=== PATIENT | female | born 1985 | race American Indian/Alaskan Native ===

== ENCOUNTER 2018-11-02 19:23 | Inpatient (IN) | payer BC, MEDICAID ==
[2018-11-02] MEDS ORDERED: BRETHINE SUB-Q PRN (21:56)
[2018-11-02] MEDS ORDERED: XYLOCAINE 2% INFILTRATI ONE (21:56)
[2018-11-02] MEDS ORDERED: SUBLIMAZE IV PRN (21:56)
--- NOTE | 2018-11-02 23:16 | History and Physical Report ---
History of Present Illness Date of examination: 11/02/18 Date of admission: 11/02/18 19:23 Chief complaint: Here for induction of labor due to obesity and elevated blood pressures. History of present illness: 33 year old female presents to L&D for induction of labor due to obesity and elevated blood pressure. LMP 02/02/18. EDC 11/09/18. Patient has received care at [facility] OB-CLIENT RELATIONS REPRESENTATIVE. records are available. significant for the following: obesity, vitamin D deficiency (supplemented with Vitamin D), anemia (supplemented with iron), hypothyroidism (treated with Levothyroxine), abnormal quad screen (increased risk Down Syndrome, panorama low risk), elevated blood pressures for the last week of . labs are as follows: O+, antibody screen negative, rubella immune, RPR nonreactive, hepatitis B surface antigen negative, HIV negative, hemoglobin electrophoresis AA, GC negative, CT negative, hemoglobin A1C 5.8, varicella immune, HSV 2 negative. Past History Past Medical History: other (obesity, hypothyroidism) Past Surgical History: no surgical history CLIENT RELATIONS REPRESENTATIVE History: denies: abnormal PAP smear, cancer, chlamydia, gonorrhea, hepatitis B, hepatitis C, herpes, HIV, syphilis, trichomonas Family/Genetic History: none Social history: Lives alone, full code. denies: smoking, alcohol abuse, prescription drug abuse, IV drug use - Obstetrical History Expected Date of Delivery: 11/09/18 Actual Gestation: 39 Week(s) 1 Day(s) : 3 Para: 1 Hx # Term Pregnancies: 2 Number of Pregnancies: 0 Spontaneous Abortions: 0 Induced : 0 Number of Living Children: 1 Medications and Allergies Allergies Allergy/AdvReac Type Severity Reaction Status Date / Time No Known Allergies Allergy Verified 11/02/18 22:16 Home Medications Medication Instructions Recorded Confirmed Last Taken Type Levothyroxine 1 PO DAILY 11/03/18 11/02/18 19:30 History Active Meds: Active Medications Ephedrine Sulfate (Ephedrine Sulfate) 10 mg IV Q2M PRN PRN Reason: Hypotension Fentanyl (Sublimaze) 100 mcg IV Q2H PRN PRN Reason: Labor Pain Lactated Ringer's (Lactated Ringers) 1,000 mls @ 125 mls/hr IV DIRECT VARSHA Oxytocin/Sodium Chloride (Pitocin/Ns 20 Unit/1000ml Drip) 20 units in 1,000 mls @ 125 mls/hr IV DIRECT VARSHA Oxytocin/Sodium Chloride (Pitocin/Ns 30 Unit/500ml) 30 units in 500 mls @ 0 mls/hr IV TITR VARSHA; Protocol Terbutaline Sulfate (Brethine) 0.25 mg SUB-Q ONCE PRN PRN Reason: Hyperstimulation/Hypertonicity Review of Systems All systems: negative - Vital Signs Vital signs: Vital Signs Pulse Pulse Ox 94 H 100 11/02/18 19:48 11/02/18 19:48 Temp Pulse Resp BP Pulse Ox 97.4 F L 94 H 18 127/90 98 11/02/18 19:58 11/02/18 21:33 11/02/18 19:58 11/02/18 21:08 11/02/18 21:33 - Physical Exam Abdomen: Positive: normal appearance, soft. Negative: distention, tenderness, guarding, rigidity Genitourinary (Female): Positive: normal external genitalia, normal perenium. Negative: perineal/vulvar lesions (no lesions seen on careful exam with bright light upon admission) Vagina: Positive: normal moisture Uterus: Positive: normal size Anus/Rectum: Positive: normal perianal skin Extremities: Positive: normal. Negative: tenderness, edema - Obstetrical FHR: category 1 Uterine Contraction Monitor Mode: External Cervical Dilatation: 3 Cervical Effacement Percentage: 60 station: -3 Uterine Contraction Pattern: Irregular Uterine Contraction Intensity: Mild Results Result Diagrams: 11/02/18 23:00 11/02/18 23:00 All other labs normal. Assessment and Plan A: at 39 weeks, 1 day gestation. GBS negative. Morbid obesity. Recent mild elevation of BP. P: Admit. Continuous EFM. Labs. Pitocin cervical ripening and induction of labor. Discussed with patient risks and benefits of Pitocin cervical ripening and induction of labor. Patient con sented to Pitocin cervical ripening and induction of labor.
[2018-11-02] MEDS: PITOCin/NS 30 UNIT/500ML 30 UNITS/500 ML BAG IV SCH (23:20)
[2018-11-02] MEDS: LACTATED RINGERS 1,000 ML IV SCH (23:30)
[2018-11-02 23:33] LABS: Hematocrit 34.8 % (30.3-42.9); Hemoglobin 11.3 gm/dl (10.1-14.3); Mean Corpuscular HGB Conc 32 % (30-34); Mean Corpuscular Volume 80 fl (79-97); Platelet Count 253 K/mm3 (140-440); Red Blood Count 4.37 M/mm3 (3.65-5.03); Red Cell Distribution Width 14.7 % (13.2-15.2)
[2018-11-02 23:58] LABS: Alanine Aminotransferase 11 units/L (7-56); Albumin 3.4 g/dL (3.9-5); BUN/Creatinine Ratio 8; Blood Urea Nitrogen 5 mg/dL (7-17); Calcium 8.8 mg/dL (8.4-10.2); Hemolysis Index 4
[2018-11-03 03:28] LABS: Uric Acid 4.1 mg/dL (3.5-7.6)
[2018-11-03] MEDS: LACTATED RINGERS 1,000 ML IV SCH ×2 (04:56→05:59)
[2018-11-03] MEDS ORDERED: NARCAN 2 MG/2 ML IV PRN (05:21)
--- NOTE | 2018-11-03 05:23 | Anesthesia Consultation ---
Anesthesia Consult and Med Hx - Airway Anesthetic Teeth Evaluation: Good ROM Head & Neck: Adequate Mental/Hyoid Distance: Adequate Mallampati Class: Class I Intubation Access Assessment: Good - Pulmonary Exam CTA: Yes - Cardiac Exam Cardiac Exam: RRR - Pre-Operative Health Status ASA Pre-Surgery Classification: ASA2 Proposed Anesthetic Plan: Epidural - Pulmonary Hx Asthma: No COPD: No Hx Pneumonia: No - Cardiovascular System Hx Hypertension: No - Central Nervous System Hx Seizures: No Hx Psychiatric Problems: No - Endocrine Hx Renal Disease: No Hx End Stage Renal Disease: No Hx Hypothyroidism: Yes (controlled by medication) Hx Hyperthyroidism: No - Hematic Hx Anemia: No Hx Sickle Cell Disease: No - Other Systems Hx Alcohol Use: Yes (socially)
--- NOTE | 2018-11-03 05:23 | Anesthesia Day of Surgery ---
Anesthesia Day of Surgery - Day of Surgery Patient Examined: Yes Patient H&P Reviewed: Yes Patient is NPO: Yes Beta Blockers: No Cardiac Clearance: No Pulmonary Clearance: No Easton's Test: N/A
[2018-11-03] MEDS ORDERED: MARCAINE 0.25% INFILTRATI ONE (05:32)
[2018-11-03] MEDS ORDERED: LIDOCAINE 1.5%/EPI 1:200,000 INFILTRATI ONE (05:32)
[2018-11-03] MEDS: fentaNYL-BUPIV 2 MCG/ML-0.125% 200 MCG/100 ML BAG EPIDURAL SCH ×3 (06:50→22:15)
[2018-11-03] MEDS: SYNTHROID PO SCH (08:13)
[2018-11-03] MEDS ORDERED: ZOFRAN IV ONE (14:00)
[2018-11-03] MEDS: PITOCin/NS 30 UNIT/500ML 30 UNITS/500 ML BAG IV SCH ×2 (15:28→22:00)
[2018-11-04] MEDS: LACTATED RINGERS 1,000 ML IV SCH ×3 (02:48→18:36)
[2018-11-04] MEDS: fentaNYL-BUPIV 2 MCG/ML-0.125% 200 MCG/100 ML BAG EPIDURAL SCH ×3 (05:31→23:18)
[2018-11-04] MEDS: SYNTHROID PO SCH (05:58)
--- NOTE | 2018-11-04 11:18 | Progress Note ---
Assessment and Plan A: at 39 weeks, 3 days gestation. IOL for MO. P: Continue Pitocin induction of labor. Anticipate . Subjective - Subjective Date of service: 11/04/18 Principal diagnosis: at 39 weeks, 3 days gestation; IOL for MO Interval history: Doing well. Comfortable. Pt. feels some pressure with contractions. Patient reports: contractions, no loss of fluid, no vaginal bleeding Objective - Vital Signs Vital Signs: Vital Signs - 12hr 11/03/18 11/03/18 11/03/18 23:18 23:21 23:23 Pulse Rate 89 75 86 Blood Pressure 122/64 O2 Sat by Pulse 99 98 Oximetry 11/03/18 11/03/18 11/03/18 23:28 23:33 23:38 Pulse Rate 78 76 72 Blood Pressure O2 Sat by Pulse 100 100 100 Oximetry 11/03/18 11/03/18 11/03/18 23:43 23:48 23:53 Pulse Rate 72 70 74 Blood Pressure O2 Sat by Pulse 100 100 100 Oximetry 11/03/18 11/04/18 11/04/18 23:58 00:03 00:08 Pulse Rate 68 67 69 Blood Pressure O2 Sat by Pulse 100 99 100 Oximetry 11/04/18 11/04/18 11/04/18 00:13 00:18 00:23 Pulse Rate 67 68 63 Blood Pressure O2 Sat by Pulse 100 100 99 Oximetry 11/04/18 11/04/18 11/04/18 00:28 00:31 00:33 Pulse Rate 69 65 65 Blood Pressure 129/62 O2 Sat by Pulse 98 98 Oximetry 11/04/18 11/04/18 11/04/18 00:38 00:43 00:44 Pulse Rate 67 86 65 Blood Pressure O2 Sat by Pulse 98 98 91 Oximetry 11/04/18 11/04/18 11/04/18 00:48 00:53 00:58 Pulse Rate 74 71 79 Blood Pressure O2 Sat by Pulse 96 97 96 Oximetry 11/04/18 11/04/18 11/04/18 01:03 01:08 01:13 Pulse Rate 75 74 71 Blood Pressure O2 Sat by Pulse 98 98 98 Oximetry 11/04/18 11/04/18 11/04/18 01:18 01:23 01:28 Pulse Rate 71 71 75 Blood Pressure O2 Sat by Pulse 98 98 98 Oximetry 11/04/18 11/04/18 11/04/18 01:31 01:33 01:38 Pulse Rate 75 75 72 Blood Pressure 111/58 O2 Sat by Pulse 98 98 Oximetry 11/04/18 11/04/18 11/04/18 01:43 01:48 01:53 Pulse Rate 72 74 83 Blood Pressure O2 Sat by Pulse 99 98 98 Oximetry 11/04/18 11/04/18 11/04/18 01:58 02:03 02:08 Pulse Rate 74 75 98 H Blood Pressure O2 Sat by Pulse 98 98 100 Oximetry 11/04/18 11/04/18 11/04/18 02:13 02:18 02:23 Pulse Rate 90 85 79 Blood Pressure O2 Sat by Pulse 99 98 99 Oximetry 11/04/18 11/04/18 11/04/18 02:28 02:31 02:33 Pulse Rate 81 81 79 Blood Pressure 116/56 O2 Sat by Pulse 98 98 Oximetry 11/04/18 11/04/18 11/04/18 02:38 02:43 02:48 Pulse Rate 78 75 77 Blood Pressure O2 Sat by Pulse 99 98 98 Oximetry 11/04/18 11/04/18 11/04/18 02:53 02:58 03:03 Pulse Rate 73 73 78 Blood Pressure O2 Sat by Pulse 98 98 97 Oximetry 11/04/18 11/04/18 11/04/18 03:08 03:13 03:18 Pulse Rate 77 82 86 Blood Pressure O2 Sat by Pulse 98 97 92 Oximetry 11/04/18 11/04/18 11/04/18 03:23 03:25 03:28 Pulse Rate 89 85 81 Blood Pressure O2 Sat by Pulse 93 94 98 Oximetry 11/04/18 11/04/18 11/04/18 03:31 03:32 03:33 Pulse Rate 83 82 81 Blood Pressure 122/59 O2 Sat by Pulse 91 97 Oximetry 11/04/18 11/04/18 11/04/18 03:38 03:43 03:48 Pulse Rate 83 80 90 Blood Pressure O2 Sat by Pulse 98 98 99 Oximetry 11/04/18 11/04/18 11/04/18 03:53 03:58 04:03 Pulse Rate 98 H 92 H 74 Blood Pressure O2 Sat by Pulse 98 98 98 Oximetry 11/04/18 11/04/18 11/04/18 04:08 04:13 04:18 Pulse Rate 73 74 74 Blood Pressure O2 Sat by Pulse 98 98 98 Oximetry 11/04/18 11/04/18 11/04/18 04:23 04:28 04:31 Pulse Rate 71 75 83 Blood Pressure 121/63 O2 Sat by Pulse 98 99 Oximetry 11/04/18 11/04/18 11/04/18 04:33 04:38 04:43 Pulse Rate 76 75 78 Blood Pressure O2 Sat by Pulse 99 99 99 Oximetry 11/04/18 11/04/18 11/04/18 04:48 04:53 04:58 Pulse Rate 79 80 85 Blood Pressure O2 Sat by Pulse 99 99 99 Oximetry 11/04/18 11/04/18 11/04/18 05:03 05:08 05:13 Pulse Rate 82 82 83 Blood Pressure O2 Sat by Pulse 99 99 98 Oximetry 11/04/18 11/04/18 11/04/18 05:18 05:23 05:28 Pulse Rate 83 85 85 Blood Pressure O2 Sat by Pulse 99 99 99 Oximetry 11/04/18 11/04/18 11/04/18 05:31 05:33 05:38 Pulse Rate 80 78 79 Blood Pressure 118/59 O2 Sat by Pulse 99 98 Oximetry 11/04/18 11/04/18 11/04/18 05:43 05:48 05:53 Pulse Rate 82 81 79 Blood Pressure O2 Sat by Pulse 98 98 98 Oximetry 11/04/18 11/04/18 11/04/18 05:58 06:03 06:08 Pulse Rate 82 82 79 Blood Pressure O2 Sat by Pulse 99 98 98 Oximetry 11/04/18 11/04/18 11/04/18 06:13 06:18 06:23 Pulse Rate 88 82 86 Blood Pressure O2 Sat by Pulse 99 99 98 Oximetry 11/04/18 11/04/18 11/04/18 06:28 06:33 06:38 Pulse Rate 82 84 81 Blood Pressure 130/61 O2 Sat by Pulse 99 98 97 Oximetry 11/04/18 11/04/18 11/04/18 06:43 06:48 06:53 Pulse Rate 79 77 80 Blood Pressure O2 Sat by Pulse 98 98 98 Oximetry 11/04/18 11/04/18 11/04/18 06:58 07:03 07:08 Pulse Rate 75 77 77 Blood Pressure O2 Sat by Pulse 98 98 98 Oximetry 11/04/18 11/04/18 11/04/18 07:13 07:18 07:23 Pulse Rate 100 H 87 85 Blood Pressure O2 Sat by Pulse 99 99 98 Oximetry 11/04/18 11/04/18 11/04/18 07:28 07:31 07:33 Pulse Rate 79 82 81 Blood Pressure 121/67 O2 Sat by Pulse 98 98 Oximetry 11/04/18 11/04/18 11/04/18 07:38 07:43 07:48 Pulse Rate 87 79 77 Blood Pressure O2 Sat by Pulse 98 98 98 Oximetry 11/04/18 11/04/18 11/04/18 07:53 07:58 08:02 Pulse Rate 84 107 H 103 H Blood Pressure O2 Sat by Pulse 98 99 90 Oximetry 11/04/18 11/04/18 11/04/18 08:03 08:08 08:13 Pulse Rate 97 H 94 H 85 Blood Pressure O2 Sat by Pulse 100 99 99 Oximetry 11/04/18 11/04/18 08:18 10:31 Pulse Rate 85 77 Blood Pressure 131/67 O2 Sat by Pulse 99 Oximetry - Exam Abdomen: Present: normal appearance, soft. Absent: distention, tenderness, guarding FHR: category 1 Uterine Contraction Monitor Mode: External Cervical Dilatation: 5.5 Cervical Effacement Percentage: 70 station: -2 Uterine Contraction Pattern: Regular Uterine Contraction Intensity: Moderate Extremities: normal - Labs Labs: Abnormal Labs 11/02/18 11/02/18 23:00 23:00 MCH 26 L Sodium 136 L Potassium 3.2 L Carbon Dioxide 20 L BUN 5 L Creatinine 0.6 L Alkaline Phosphatase 168 H Albumin 3.4 L Laboratory Results - last 24 hr 11/02/18 23:00 RPR Nonreactive
--- NOTE | 2018-11-04 11:22 | Event Note ---
Date: 11/03/18 Note for 11/03/18 at 11:30 PM. Patient is 39 weeks, 2 days gestation. Being induced for class 3 obesity and elevated blood pressure. No leaking of fluid or vaginal bleeding. Cervix 5/60/-2. Plan rest break from Pitocin. Will restart in early AM. Category 1 heart rate tracing. BPs have been stable.
--- NOTE | 2018-11-04 17:49 | Event Note ---
Date: 11/04/18 Patient is having labor induced for class 3 obesity and elevated blood pressure. Cervix is 6-7/70/-1. AROM with moderate amount of clear fluid. Contractions every 2-3 minutes, moderate to palpation. Uterus palpates soft between contractions. Category 1 heart rate tracing. Anticipate vaginal .
[2018-11-04] MEDS ORDERED: TYLENOL PO ONE (18:44)
[2018-11-04] MEDS ORDERED: AMPICILLIN/NS 2 GM/100 ML 2 GM/100 ML BAG IV SCH (20:00)
[2018-11-04 21:12] LABS: Basophils % (Auto) 0.4 % (0.0-1.8); Eosinophils % (Auto) 0.2 % (0.0-4.3); Hematocrit 33.7 % (30.3-42.9); Hemoglobin 10.8 gm/dl (10.1-14.3); Lymphocytes # (Auto) 1.8 K/mm3 (1.2-5.4); Lymphocytes % (Auto) 20.8 % (13.4-35.0); Mean Corpuscular HGB Conc 32 % (30-34); Mean Corpuscular Volume 81 fl (79-97); Monocytes % (Auto) 11.5 % (0.0-7.3); Platelet Count 245 K/mm3 (140-440); Red Blood Count 4.14 M/mm3 (3.65-5.03); Red Cell Distribution Width 15.2 % (13.2-15.2)
[2018-11-04 21:37] LABS: Alanine Aminotransferase 13 units/L (7-56); BUN/Creatinine Ratio 5; Blood Urea Nitrogen 3 mg/dL (7-17); Calcium 8.1 mg/dL (8.4-10.2); Hemolysis Index 15
[2018-11-04] MEDS ORDERED: APRESOLINE IV ONE (22:50)
[2018-11-04] MEDS ORDERED: MAGNESIUM SULFATE 4GM/100ML 4 GM/100 ML BAG IV ONE (22:57)
--- NOTE | 2018-11-04 23:08 | Event Note ---
Date: 11/04/18 Elevated blood pressures. Patient denies headache, visual disturbance, nausea/vomiting. Swelling in legs and feet noted. IV Hydralazine ordered and given and BP decreased. Labetalol po ordered. Magnesium Sulfate ordered. Labs have been done. Consulted with Dr. Gillis regarding patient's blood pressures and edema and above interventions. Discussed plan of care with patient and her family.
[2018-11-04] MEDS: MAGNESIUM SULFATE 40GM/1000ML 40 GM/1,000 ML BAG IV SCH (23:47)
[2018-11-05] MEDS ORDERED: XYLOCAINE MPF 2% ONE (00:04)
--- NOTE | 2018-11-05 01:37 | Event Note ---
Date: 11/05/18 Last cervical exam: with contraction. Fluid clear. Patient is receiving magnesium sulfate. Pt. denies headache, visual disturbance. Consulted with Dr. Gillis regarding patient and slow cervical change and interventions taken. Dr. Gillis states to continue with labor and attempt vaginal .
[2018-11-05] MEDS: PITOCin/NS 20 UNIT/1000ML DRIP 20 UNITS/1,000 ML BAG IV SCH ×2 (02:00→06:52)
[2018-11-05] MEDS ORDERED: BENADRYL PO PRN (02:42)
[2018-11-05] MEDS ORDERED: TYLENOL PO PRN (02:42)
[2018-11-05] MEDS ORDERED: TUCKS PAD TP PRN (02:42)
[2018-11-05] MEDS ORDERED: LANSINOH TP PRN (02:42)
[2018-11-05] MEDS ORDERED: DULCOLAX PR PRN (02:42)
[2018-11-05] MEDS ORDERED: MILK OF MAGNESIA PO PRN (02:42)
--- NOTE | 2018-11-05 02:53 | Procedure Note ---
OB Delivery Note - Delivery Date of Delivery: 11/05/18 Surgeon: MONIQUE HEREDIA Estimated blood loss: 300cc - Vaginal Delivery presentation: vertex Delivery position: OA Delivery induction: oxytocin Delivery augmentation: rupture of membranes Delivery monitor: external FHT, external uterine Route of delivery: Delivery placenta: spontaneous Delivery cord: 3 umbilical vessels Episiotomy: none Delivery laceration: none Anesthesia: epidural Delivery comments: Spontaneous vaginal delivery of liveborn female weighing 7 lb 8 oz at 0149 over intact perineum with apgars of 7/9. Spontaneous delivery of intact placenta and membranes by [place] mechanism at 0159. Sponge count correct. Vaginal sweep negative. No lacerations noted.
[2018-11-05] MEDS ORDERED: KCL 10MEQ/100ML 10 MEQ/100 ML BAG IV ONE ×2 (02:56→08:30)
[2018-11-05] MEDS ORDERED: SODIUM CHLORIDE FLUSH SYRINGE 10 ML IV PRN (03:00)
[2018-11-05] MEDS: NORMODYNE PO SCH ×3 (03:01→22:27)
[2018-11-05] MEDS: SYNTHROID PO SCH (06:52)
[2018-11-05] MEDS ORDERED: APRESOLINE IV ONE (08:30)
[2018-11-05] MEDS: NORCO 5/325 PO PRN ×2 (09:22→19:08)
[2018-11-05 12:38] LABS: Alanine Aminotransferase 12 units/L (7-56); Albumin 2.8 g/dL (3.9-5); BUN/Creatinine Ratio 3; Blood Urea Nitrogen 2 mg/dL (7-17); Calcium 7.6 mg/dL (8.4-10.2); Hemolysis Index 41
[2018-11-05 13:38] LABS: Bilirubin,Urine NEG (Negative); Blood,Urine MOD (Negative); Color,Urine Yellow (Yellow); Mucus,Urine FEW /HPF; Protein,Urine <15 mg/dL mg/dL (Negative)
[2018-11-05 15:55] LABS: Hematocrit 30.4 % (30.3-42.9); Hemoglobin 9.9 gm/dl (10.1-14.3)
[2018-11-05] MEDS: LACTATED RINGERS 1,000 ML IV SCH ×3 (18:25→19:14)
[2018-11-05] MEDS: MAGNESIUM SULFATE 40GM/1000ML 40 GM/1,000 ML BAG IV SCH ×2 (18:27→18:58)
[2018-11-05] MEDS: COLACE PO SCH (22:27)
[2018-11-06] MEDS ORDERED: KCL 10MEQ/100ML 10 MEQ/100 ML BAG IV SCH (01:00)
[2018-11-06] MEDS ORDERED: NS/KCL 40MEQ 40 MEQ/1,000 ML BAG IV SCH (02:00)
[2018-11-06] MEDS: COLACE PO SCH ×2 (10:30→22:08)
--- NOTE | 2018-11-06 10:35 | Progress Note ---
Assessment and Plan A: PPD#1 s/p Hypokalemia Bottlefeeding Stable P: Routine PP orders 40Meq Potassium in IV fluids Repeat potassium level 4 hrs after completion Anticipate discharge home 24-48 hrs Subjective - Subjective Date of service: 11/06/18 Principal diagnosis: PPD#1 s/p Interval history: See H&P and delivery note Patient reports: appetite normal, voiding normally, pain well controlled, flatus, ambulating normally, no bowel movement [place]: doing well, bottle feeding Objective - Vital Signs Latest vital signs: Vital Signs Temp Pulse Resp BP BP Pulse Ox 11/06/18 07:57 97.7 F 89 20 149/85 98 11/06/18 02:25 98.6 F 76 99 H 136/73 11/05/18 23:32 75 127/70 11/05/18 23:31 97.7 F 20 11/05/18 23:00 74 115/59 11/05/18 22:00 81 130/64 11/05/18 21:00 88 147/68 11/05/18 20:00 82 134/66 11/05/18 19:02 85 142/69 11/05/18 18:42 86 141/78 11/05/18 17:38 88 140/84 11/05/18 15:52 98.3 F 18 11/05/18 15:46 80 135/83 11/05/18 13:10 90 131/69 11/05/18 11:00 84 116/56 Intake and Output 11/05/18 11/06/18 11/06/18 23:59 07:59 15:59 Intake Total 1230.833 Output Total 3000 1200 Balance -1769.167 -1200 Intake: IV 1230.833 Lactated Ringers 1,000 ml 45 @ 125 mls/hr IV DIRECT VARSHA Rx#:[id number] MAGNESIUM SULFATE 40GM/ 1185.833 1000ML 40 gm In 1,000 ml @ 2 GM/HR 50 mls/hr IV DIRECT VARSHA Rx#:[id number] Output: Urine 3000 1200 Indwelling Catheter 3000 Void 1200 Other: Total, Output Amount 600 200 # Voids Void 1 - Exam Breasts: Present: normal Cardiovascular: Present: Regular rate, Normal S1, Normal S2, No murmurs Lungs: Present: Clear to auscultation, Normal air movement Abdomen: Present: soft, normal bowel sounds. Absent: distention Vulva: both: normal Uterus: Present: firm, fundal height below umbilicus (-1) Extremities: Present: normal Deep Tendon Reflex Grade: Normal +2 - Labs Labs: Abnormal lab results 11/05/18 11/05/18 11/05/18 Range/Units 11:50 15:33 15:33 Hgb 9.9 L (10.1-14.3) gm/dl Potassium 3.1 L (3.6-5.0) mmol/L Carbon Dioxide 19 L (22-30) mmol/L BUN 2 L (7-17) mg/dL Creatinine 0.6 L (0.7-1.2) mg/dL Glucose 166 H (65-100) mg/dL Calcium 7.6 L (8.4-10.2) mg/dL Magnesium 4.20 H (1.7-2.3) mg/dL Alkaline Phosphatase 139 H (35-129) units/L Total Protein 5.9 L (6.3-8.2) g/dL Albumin 2.8 L (3.9-5) g/dL 11/05/18 11/05/18 11/06/18 Range/Units 21:59 21:59 00:20 Hgb (10.1-14.3) gm/dl Potassium 3.0 L (3.6-5.0) mmol/L Carbon Dioxide (22-30) mmol/L BUN (7-17) mg/dL Creatinine (0.7-1.2) mg/dL Glucose (65-100) mg/dL Calcium (8.4-10.2) mg/dL Magnesium 3.90 H 3.40 H (1.7-2.3) mg/dL Alkaline Phosphatase (35-129) units/L Total Protein (6.3-8.2) g/dL Albumin (3.9-5) g/dL
[2018-11-06] MEDS: NORMODYNE PO SCH ×2 (11:30→22:08)
[2018-11-07] MEDS: SYNTHROID PO SCH (06:15)
[2018-11-07] MEDS: NORMODYNE PO SCH (09:24)
[2018-11-07] MEDS: COLACE PO SCH (09:24)
[2018-11-07] MEDS: NORCO 5/325 PO PRN (09:26)
--- NOTE | 2018-11-07 13:11 | Progress Note ---
Addendum entered and electronically signed by JULIA LE CNM 11/07/18 13:52: PP HTN; going home on Labetolol 100mg PO BID also contining Synthroid 175mcg qd D/C Home today RTO in One Week for BP check Original Note: Assessment and Plan A: PP Day #2 Asymptomatic Anemia Hypokalemia P: Follow Routine Orders Advised to take a OTC Potassium Supplement dailt Advised to continue PNV daily Plans OCPs at 6 Weeks D/C Home today RTO in 6 Weeks Subjective - Subjective Date of service: 11/07/18 Principal diagnosis: PPD#1 s/p Patient reports: appetite normal, voiding normally, pain well controlled, flatus, ambulating normally [place]: doing well, bottle feeding Objective - Vital Signs Latest vital signs: Vital Signs Temp Pulse Resp BP Pulse Ox 11/07/18 09:24 130/77 11/07/18 08:53 98.3 F 94 H 24 130/77 98 11/07/18 00:42 98.6 F 79 20 127/63 98 11/06/18 22:08 76 144/70 11/06/18 15:59 98.0 F 77 20 139/79 99 Intake and Output 11/06/18 11/07/18 11/07/18 22:59 06:59 14:59 Intake Total 480 120 600 Balance 480 120 600 Intake: Oral 480 120 600 Other: Total, Intake Amount 240 120 600 Voiding Method Toilet # Voids Void 1 1 2 - Exam Breasts: Present: normal Cardiovascular: Present: Regular rate Lungs: Present: Clear to auscultation, Normal air movement Abdomen: Present: normal appearance, soft, normal bowel sounds Uterus: Present: normal, firm, fundal height below umbilicus Extremities: Present: normal - Labs Labs: Abnormal lab results 11/06/18 Range/Units 16:48 Potassium 3.5 L (3.6-5.0) mmol/L
--- NOTE | 2018-11-07 13:12 | Discharge Summary ---
Addendum entered and electronically signed by JULIA LE CNM 11/07/18 13:54: RTO in ONE Week for Blood Pressure Check Original Note: Providers - Providers Date of Admission: 11/02/18 19:23 Date of discharge: 11/07/18 Attending physician: SEBASTIAN RUSSELL MD Primary care physician: SEBASTIAN RUSSELL MD Hospitalization Reason for admission: active labor Delivery: Episiotomy: none Laceration: none Other procedures: none complications: none Discharge diagnosis: IUP at term delivered baby: female Condition at discharge: Good Disposition: DC-01 TO HOME OR SELFCARE Plan - Provider Discharge Summary Activity: routine, no sex for 6 weeks, no heavy lifting 4 weeks, no strenuous exercise Diet: routine Instructions: routine Additional instructions: [] Smoking cessation referral if applicable(refer to patient education folder for contact #) [] Refer to [facility]'s [facility] Booklet Call your doctor immediately for: * Fever > 100.5 * Heavy vaginal bleeding ( >1 pad per hour) * Severe persistent headache * Shortness of breath * Reddened, hot, painful area to leg or breast * Drainage or odor from incision. * Keep incision clean and dry at all times and follow doctor's instructions regarding bathing/showering - Follow up plan Follow up: SEBASTIAN RUSSELL MD [Primary Care Provider] - 6 Weeks
[2018-11-07 15:58] VITALS: BP 121/82
== END 2018-11-07 14:55 | disposition home or self-care (01) | DRG 806 ==
LOC: LD 19:23 → OB 11-06 02:00
PROVIDERS: ADMIT Obstetrics & Gynecology; ATTEND Obstetrics & Gynecology
PROC: 3E033VJ Introduction of Other Hormone into Peripheral Vein, Percutaneous Approach (ICD-10-PCS; 2018-11-02)
PROC: 10907ZC Drainage of Amniotic Fluid, Therapeutic from Products of Conception, Via Natural or Artificial Opening (ICD-10-PCS; 2018-11-04)
PROC: 10E0XZZ Delivery of Products of Conception, External Approach (ICD-10-PCS; principal; 2018-11-05)
PROC: 3E0R3BZ Introduction of Anesthetic Agent into Spinal Canal, Percutaneous Approach (ICD-10-PCS; 2018-11-05)
PROC: 00HU33Z Insertion of Infusion Device into Spinal Canal, Percutaneous Approach (ICD-10-PCS; 2018-11-05)
DX: O99.214 Obesity complicating childbirth (principal); D62 Acute posthemorrhagic anemia; Z37.0 Single live birth; Z3A.39 39 weeks gestation of pregnancy; E66.01 Morbid (severe) obesity due to excess calories; O99.284 Endocrine, nutritional and metabolic diseases complicating childbirth; E03.9 Hypothyroidism, unspecified; E55.9 Vitamin D deficiency, unspecified; Z60.2 Problems related to living alone; E87.6 Hypokalemia; D64.9 Anemia, unspecified; O99.02 Anemia complicating childbirth; O16.4 Unspecified maternal hypertension, complicating childbirth
CPT/HCPCS: 36415; 80053; 81001; 83615; 83735; 84132; 84550; 85014; 85018; 85025; 85027; 86592; 86850; 86900; 86901; G0378; J0290; J0360; J2405; J2590; J3475; J3480; J7120